=== PATIENT | male | born 1985 | race Hispanic/Latino ===

== ENCOUNTER 2020-09-22 20:05 | Emergency (ER) | payer OTHER ==
[~2020-09-22] VITALS: Ht 185.4 cm; Wt 81.0 kg
[2020-09-22] MEDS ORDERED: TOBRAMYCIN0.31 OS (20:24)
[2020-09-22] MEDS ORDERED: BACTRIM DS1 TAB PO (22:36)
[2020-09-22 23:16] VITALS: BP 110/68
== END 2020-09-22 23:16 | DRG 125 ==
LOC: ED 20:05
DX: H10.9 Unspecified conjunctivitis (principal); H44.792 Retained (old) intraocular foreign body, nonmagnetic, in other or multiple sites, left eye; Z18.10 Retained metal fragments, unspecified